=== PATIENT | female | born 1990 | race American Indian/Alaskan Native ===

== ENCOUNTER 2025-02-03 02:07 | Emergency (ER) | payer OTHER, BC ==
[2025-02-03] MEDS: oxyCODONE 5 MG/5 ML Cup PO ONE (03:37)
[2025-02-03 04:37] VITALS: BP 109/59; PULSE 56
== END 2025-02-03 03:40 ==
LOC: CC.ED 02:07
DX: S43.014A Anterior dislocation of right humerus, initial encounter (principal); F17.210 Nicotine dependence, cigarettes, uncomplicated; Z79.899 Other long term (current) drug therapy; F17.290 Nicotine dependence, other tobacco product, uncomplicated; V48.1XXA Car passenger injured in noncollision transport accident in nontraffic accident, initial encounter; Y93.89 Activity, other specified
CPT/HCPCS: 23650; 73030-RT; 99284-25; A9270-GY; J1171